=== PATIENT | female | born 1965 | race Hispanic/Latino ===

== ENCOUNTER 2016-10-05 07:21 | Emergency (ER) | payer MEDICAID ==
[2016-10-05 07:22] VITALS: BMI 22.3
[2016-10-05] MEDS ORDERED: TDAP Vaccine 0.5 mL Syr IM ONE (07:32)
[2016-10-05 07:33] VITALS: BP 134/74; PULSE 84; RESP 18; TEMP 98.6; O2SAT 100
[2016-10-05] MEDS ORDERED: Lidocaine 1% Inj (20ml) ONE (07:42)
--- NOTE | 2016-10-05 08:12 | ED PDOC ---
Arrival/HPI - General Chief Complaint: Abnormal Skin Integrity Time Seen by Provider: 10/05/16 07:30 Historian: Patient - History of Present Illness Narrative History of Present Illness (Text): 10/05/16 08:04 This is a 51 year old female with a laceration on her left 3rd digit about the PIP joint. The patient states that she cut herself on the saran wrap cutting blade. The patient states that this occurred last night, she washed the wound and wrapped it before going to bed, however, this morning she noted that the wound continued to bleed. She presents with pain and throbbing in the digit. The patient denies ROM restriction, numbness, and skin color changes. Time/Duration: Prior to Arrival, 24 hours Symptom Onset: Sudden Symptom Course: Unchanged Severity Level: 7 Past Medical History - Provider Review Nursing Documentation Reviewed: Yes - Travel History Have you recently traveled outside [place] w/in the past 3 mons?: No - Past History Past History: Non-Contributing - Infectious Disease Hx of Infectious Diseases: None - Tetanus Immunization Tetanus Immunization: Unknown - Past Medical History Past Medical History: Non-Contributing - Cardiac Hx Cardiac Disorders: No - Pulmonary Hx Respiratory Disorders: No - Neurological Hx Neurological Disorder: No - HEENT Hx HEENT Disorder: No - Renal Hx Renal Disorder: No - Endocrine/Metabolic Hx Endocrine Disorders: No - Hematological/Oncological Hx Blood Disorders: No - Integumentary Hx Dermatological Disorder: No - Musculoskeletal/Rheumatological Hx Musculoskeletal Disorders: Yes Hx Gout: Yes - Gastrointestinal Hx Gastrointestinal Disorders: No Hx Gastroesophageal Reflux: Yes - Genitourinary/Gynecological Hx Genitourinary Disorders: No - Psychiatric Hx Depression: No Hx Emotional Abuse: No Hx Physical Abuse: No Hx Substance Use: No (unknown) - Surgical History Hx Tonsillectomy: Yes - Anesthesia Hx Anesthesia: Yes Hx Anesthesia Reactions: No Hx Malignant Hyperthermia: No - Suicidal Assessment Feels Threatened In Home Enviroment: No Family/Social History - Physician Review Nursing Documentation Reviewed: Yes Family/Social History: No Known Family HX Smoking Status: Heavy Smoker > 10 Cigarettes Daily Hx Alcohol Use: Yes Hx Substance Use: No (unknown) Hx Substance Use Treatment: No (unknown) Allergies/Home Meds Allergies/Adverse Reactions: Allergies codeine Adverse Reaction (Verified 10/05/16 07:33) NAUSEA Home Medications: Home Meds Medication Instructions Recorded Confirmed Allopurinol [Zyloprim] 100 mg PO DAILY 12/14/15 12/14/15 Indomethacin [Indocin] 25 mg PO DAILY 06/24/15 06/24/15 Review of Systems - Physician Review All systems were reviewed & negative as marked: Yes - Review of Systems Constitutional: absent: Fatigue, Fevers Respiratory: absent: SOB, Cough Cardiovascular: absent: Chest Pain, Palpitations Gastrointestinal: absent: Abdominal Pain Genitourinary Female: absent: Urine Output Changes Musculoskeletal: Arthralgias, Joint Swelling Skin: Laceration. absent: Rash, Cellulitis Neurological: absent: Headache Hemo/Lymphatic: absent: Adenopathy Physical Exam Vital Signs Reviewed: Yes Vital Signs Temp Pulse Resp BP Pulse Ox 10/05/16 07:32 98.6 F 84 18 134/74 100 Temperature: Afebrile Blood Pressure: Normal Pulse: Regular Respiratory Rate: Normal Appearance: Positive for: Well-Appearing Pain Distress: None Mental Status: Positive for: Alert and Oriented X 3 - Systems Exam Head: Present: Atraumatic, Normocephalic Pupils: Present: PERRL Extroacular Muscles: Present: EOMI Conjunctiva: Present: Normal Mouth: Present: Moist Mucous Membranes Neck: Present: Normal Range of Motion Respiratory/Chest: Present: Clear to Auscultation, Good Air Exchange. No: Respiratory Distress, Accessory Muscle Use Cardiovascular: Present: Regular Rate and Rhythm, Normal S1, S2. No: Murmurs Abdomen: Present: Normal Bowel Sounds. No: Tenderness, Distention, Peritoneal Signs Upper Extremity: Present: Normal ROM, NORMAL PULSES, Swelling (L 3rd PIP), Erythema, Neurovascularly Intact. No: Normal Inspection (1cm laceration left 3 digit PIP joint), Cyanosis, Edema Lower Extremity: Present: Normal Inspection. No: Edema Neurological: Present: GCS=15, CN II-XII Intact, Speech Normal Skin: Present: Warm, Dry, Laceration (1cm laceration Left 3rd PIP joint) Lymphatic: No: Cervical Adenopathy, Axillary Adenopathy Psychiatric: Present: Alert, Oriented x 3, Normal Insight, Normal Concentration Medical Decision Making ED Course and Treatment: 10/05/16 08:27 Impression: This is a 51 year old female with a laceration on her left 3rd digit about the PIP joint. The patient appears clinically stable. Minor laceration about the left 3rd PIP joint. Differential: Laceration Plan: Laceration repair with horizontal mattress stitch TDap booster Prior Visits: 03/02/11- abdominal pain Progress Note: Patient seen and examined at the bedside. laceration thoroughly irricated with 500mL of saline, cleared with betadyne and alcohol. The area was draped to create a sterile working field. 2cc of 1% lidocaine was injected into the wound edges to create local anesthesia. The syringe was drawn back prior to injection to ensure so blood return. Using 5-0 nylon suture, 1 horizontal mattress suture was placed about the incision. Adequate wound edge approximation was achieved. Bacitracin ointment was applied to the wound, and then the wound was dressed in a sterile fashion with 4x4s, kerlix, and joel bandage. The patient tolerated the procedure well. Patient was given a Tdap booster prior to discharge. The patient was agreeable with discharge and follow up with her PMD. The patient was medically safe for discharge. - Medication Orders Current Medication Orders: Discontinued Medications Lidocaine HCl (Lidocaine 1% (20ml)) Confirm Administered Dose 20 ml .ROUTE .[facility] ONE Stop: 10/05/16 07:43 Tetanus/Reduced Diphtheria/Acell Pertussis (Boostrix Vaccine Inj) 0.5 ml IM .ONCE ONE Stop: 10/05/16 07:33 Disposition/Present on Arrival - Present on Arrival Any Indicators Present on Arrival: No History of DVT/PE: No History of Uncontrolled Diabetes: No Urinary Catheter: No History of Decub. Ulcer: No History Surgical Site Infection Following: None - Disposition Have Diagnosis and Disposition been Completed?: Yes Diagnosis: Laceration Disposition: HOME/ ROUTINE Disposition Time: 08:33 Patient Plan: Discharge Condition: GOOD Discharge Instructions (ExitCare): Laceration (ED), Care For Your Stitches (ED) , Diphtheria/Acellular Pertussis/Tetanus Booster Vaccine (Tdap) (Injection) Print Language: [id number] Additional Instructions: 1.) Keep wound covered and clean 2.) Suture removal in 7-10 days. Please follow up with your PMD for suture removal. If your PMD is unavailable, please return to the ED. 3.) If symptoms return or worsen, please return to the ED for evaluation
--- NOTE | 2016-10-05 08:37 | PCM.PROC ---
Procedures Attestation:: I certify that I have explained the specified Operation(s) or Procedure(s), risks, benefits and reasonable alternatives to the Patient and/or other person responsible. The opportunity was given to ask questions and all questions answered - Laceration lidocaine 1% simple, single layer linear left hand 5-0 other local infiltration horizontal mattress Site: hand Side (if applicable): left (Left 3rd digit PIP) Size (cm): 1 Description: linear, clean Depth: simple, single layer Anesthesia used: lidocaine 1% Anesthesia technique: local infiltration Amount (mLs): 2 Pre-repair: wound explored, irrigated extensively, deep structures intact Skin layer closed with: other (Nylon) Size: 5-0 Number of sutures: 1 Technique: horizontal mattress
== END 2016-10-05 08:48 | disposition home or self-care (01) ==
LOC: ED 07:21
DX: S61.213A Laceration without foreign body of left middle finger without damage to nail, initial encounter (principal); W45.8XXA Other foreign body or object entering through skin, initial encounter; Y92.89 Other specified places as the place of occurrence of the external cause; Z23 Encounter for immunization